=== PATIENT | male | born 1995 | race Caucasian/White ===

== ENCOUNTER 2016-09-24 09:28 | Emergency (ER) | payer OTHER ==
[2016-09-24] MEDS ORDERED: KETOROLAC 30 MG/ML VIAL (J1885) As Ordered ONE (10:24)
[2016-09-24] MEDS ORDERED: ONDANSETRON 4MG/2ML VIAL (J2405) As Ordered ONE (10:24)
[2016-09-24 10:36] LABS: BASO % 0.4 % (0.0-1.0); EOS % 0.7 % (0.0-3.0); LARGE UNSTAINED CELL # 0.2 K/mm3 (0.0-0.4); LYMPH # 1.2 K/mm3 (1.5-6.5); LYMPH % 16.9 % (24.0-44.0); MEAN CORPUSCULAR HEMOGLOBIN 29.9 pg (27.0-33.0); MONO # 0.4 K/mm3 (0.0-0.8); NEUTROPHILS # 5.4 K/mm3 (1.8-7.7); PLATELET COUNT, AUTOMATED 136 k/mm3 (150-450); WHITE BLOOD COUNT 7.3 K/mm3 (4.0-10.0)
[2016-09-24 10:53] LABS: ALBUMIN 4.6 GM/DL (3.2-5.2); ALBUMIN/GLOBULIN RATIO 1.28 (1.00-1.93); ALKALINE PHOSPHATASE 107 U/L (45-117); ALT/SGPT 20 U/L (12-78); AMYLASE 52 U/L (25-115); ANION GAP 8 MEQ/L (8-16); AST/SGOT 16 U/L (15-37); BILIRUBIN,DIRECT 0.3 MG/DL (0.0-0.2); BILIRUBIN,TOTAL 2.6 MG/DL (0.2-1.0); BLOOD UREA NITROGEN 12 MG/DL (7-18); CALCIUM LEVEL 9.2 MG/DL (8.5-10.1); CARBON DIOXIDE LEVEL 30 MEQ/L (21-32); CHLORIDE LEVEL 103 MEQ/L (98-107); CREATININE FOR GFR 1.37 MG/DL (0.70-1.30); GLUCOSE, FASTING 92 MG/DL (70-105); POTASSIUM SERUM 3.5 MEQ/L (3.5-5.1); SODIUM LEVEL 141 MEQ/L (136-145); TOTAL PROTEIN 8.2 GM/DL (6.4-8.2)
--- NOTE | 2016-09-24 11:08 | REP ---
Clinical: Generalized abdominal pain. Findings: Lung bases clear. Visualized heart and pericardium normal. Liver, spleen, pancreas, gallbladder, bilateral adrenal glands and kidneys are normal for noncontrast evaluation. Evaluation of the enteric system is limited by paucity of intraperitoneal fat as well as lack of intraluminal contrast. No obstruction or obvious acute inflammatory process. Visualized portions of the appendix appear normal although incompletely evaluated. Pelvis demonstrates normal bladder and age appropriate prostate/seminal vesicles. 3 mm calcification within the deep left silvia pelvis likely represents phlebolith and less likely ureteral calculus. No ascites. No free air. No obvious adenopathy. Abdominal aorta without aneurysm. Musculoskeletal structures intact. Impression: Limited examination. No obvious acute intra-abdominal or pelvic pathology. 3 mm calcification in the left silvia pelvis likely phleboliths although correlation with physical examination and urinalysis is recommended to better exclude the possibility of distal left ureteral stone. Signed by Marty Brown MD 09/24/2016 11:00 A
--- NOTE | 2016-09-24 12:12 | REP ---
Clinical: Biliary colic. Technique: Real time lua scale and color evaluation using curved array transducer. Findings: The liver and pancreas are normal in contour, size, echogenicity without focal hepatic or pancreatic lesions identified. The gallbladder is normal and without gallstones, wall thickening or pericholecystic fluid. No biliary ductal dilatation is appreciated and the common bile duct measures 2.7 mm diameter. The right kidney is normal in reniform shape with extrarenal pelvis and measures 9.7 x 3.9 x 5.2 cm. No ascites in the visualized right upper quadrant. Impression: Normal RUQ abdominal ultrasound. Signed by Marty Brown MD 09/24/2016 12:04 P
[2016-09-24] MEDS ORDERED: TAMSULOSIN 0.4 MG CAP As Ordered ONE (12:47)
[2016-09-24] MEDS ORDERED: NORCO, ANEXSIA 5/325MG TABLET (HYDROcodone/ACETAMINOPHEN) As Ordered ONE (12:47)
[2016-09-24] MEDS ORDERED: ONDANSETRON 4 MG ORAL DISINTEGRATING TAB (S0181) As Ordered ONE (12:47)
--- NOTE | 2016-09-24 13:00 | EDDOCDS ---
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 Risk factors: the patient reports not having a history of previous torsion. Adult Sepsis Screening: The patient does not have new or worsening altered mentation. Patient's respiratory rate is less than 22. Systolic blood pressure is greater than 100. Patient has a qSOFA score of 0- Negative Sepsis Screen. Suicide/Homicide risk assessment- the patient denies having any suicidal and/or homicidal ideations and does not present with any other emotional, behavioral or mental health complaints. 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 Transition of care: Patient was received from [facility]. 09:45 Acuity: MAGDALENA Level 3 kcs 09:45 Method Of Arrival: Walkin/Carried/Asstd kcs Triage Assessment: 09:50 General: Appears comfortable, well developed, well nourished, well groomed, Behavior is kcs cooperative, flat. Pain: Location: abdomen Pain currently is 5 out of 10 on a pain scale. HIV screening NA for this visit active duty . Neurological: Level of Consciousness is awake, alert. Respiratory: Airway is patent Respiratory effort is even, unlabored, Respiratory pattern is regular, symmetrical. GI: Reports nausea, Denies diarrhea, vomiting. Derm: Skin is intact, is healthy with good turgor, Skin is dry, Skin is normal. Historical: - Allergies: Augmentin (Rash); - Home Meds: 1. promethazine 25 mg oral tab every 6 hours as needed 2. Zantac 150 mg oral cap once daily 3. Sudafed 30 mg oral tab every 4-6 hours as needed 4. Tylenol 325 mg oral tab 2 tabs every 4 hours as needed 5. Zofran (as hydrochloride) 4 mg Oral tab 4 mg every 8 hours as needed - PMHx: GERD; - PSHx: none; - Social history: Smoking status: Patient states was never smoker of tobacco. No barriers to communication noted, The patient speaks fluent Icelandic. - Family history: Not pertinent. - : The pt / caregiver states he / she is not on anticoagulants. Home medication list is obtained from the patient. - Exposure Risk Screening:: None identified. Screenin:10 Screening information is obtained from the patient. Fall risk: No risks identified. mk4 Assistance ADL's: requires no assistance with activities of daily living. Abuse/DV Screen: The patient / caregiver reports he/she is: not in a situation that causes fear, pain or injury. Nutritional screening: No deficits noted. Advance Directives: Currently, there is no health care proxy. There is no active DNR order. There is no living will. There is no Power of Door Opener. Advance directive information has not previously been placed in an [facility] medical record. Further advance directive information is declined. home support is adequate. Assessment: 10:10 General: Appears uncomfortable, Behavior is cooperative. Pain: Location: right lower mk4 quadrant and left lower quadrant. Neurological: Level of Consciousness is awake, alert. Respiratory: Airway is patent Respiratory effort is even, unlabored, Respiratory pattern is regular, Breath sounds are clear bilaterally. GI: Abdomen is flat, non- distended Bowel sounds present X 4 quads. Abd is tender to palpation in right lower quadrant and left lower quadrant. Derm: Skin is intact, is healthy with good turgor, Skin is pink, warm & dry. 12:02 General: Appears in no apparent distress, comfortable, Behavior is appropriate for age, hs1 cooperative, patient resting at this time with no needs. Patient states pain decreased and that he is feeling better. . 12:58 General: Appears in no apparent distress, Behavior is appropriate for age, cooperative. dsf Neurological: Level of Consciousness is awake, alert. Cardiovascular: Capillary refill < 3 seconds. Respiratory: Airway is patent Respiratory effort is even, unlabored, Respiratory pattern is regular, symmetrical. Derm: Skin is pink, warm & dry. Vital Signs: 09:30 BP 145 / 90; Pulse 88; Resp 16; Temp 96.4(T); Pulse Ox 100% on R/A; Weight 63.5 kg (R); lr2 Height 5 ft. 7 in. (170.18 cm) (R); Pain 5/10; 12:49 BP 134 / 70; Pulse 91; Resp 18; Temp 97.3(O); Pulse Ox 99% on R/A; Pain 4/10; jml1 09:30 Body Mass Index 21.93 (63.50 kg, 170.18 cm) lr2 Vitals: 09:30 Log In Time: September 24, 2016 at 09:28. lr2 ED Course: 09:30 Patient visited by Ginger Hernández. lr2 09:30 Patient moved to Waiting lr2 09:31 AMEE Chung is Private Physician. lr2 09:32 Patient moved to Pre RCE lr2 09:37 [facility] Montanez [facility]-C [facility]. ef1 09:37 April Cobb MD is Attending Physician. ef1 09:47 Triage Initiated kcs 09:52 Patient visited by Brigette Montanez PA-C. ef1 09:52 Patient moved to Triage 1 kcs 10:09 Patient moved to I1 / M1 srm 10:09 Patient moved to I7 / 29 srm 10:10 The patient / caregiver is instructed regarding the plan of care and ED course. mk4 10:10 Inserted saline lock: 20 gauge in right antecubital area and blood collected. mk4 10:28 Patient visited by Brigette Montanez PA-C. ef1 10:46 [facility] Payment Agreement was scanned into [employer] and attached to record. mm15 10:59 Patient name changed from Daniel\S\\S\Mcelroy\S\ to Daniel\S\ \S\Mcelroy. EDMS 11:02 Patient visited by Christina Cabrales RN. mk4 11:21 Patient visited by Brigette Montanez PA-C. ef1 11:39 CT ABD & PELVIS: No Contrast Returned. EDMS 11:49 Patient visited by Brigette Montanez PA-C. ef1 12:24 Patient visited by Christina Cabrales RN. mk4 12:25 Gallbladder US Returned. EDMS 12:35 Patient visited by Brigette Montanez PA-C. ef1 12:35 JENNIFER Chung is Referral Physician. ef1 12:35 Stacy Dave MD is Referral Physician. ef1 12:35 Loco Vargas MD is Referral Physician. ef1 12:50 Patient visited by Mark Valerio. jml1 12:58 Discontinued lock intact, bleeding controlled, pressure dressing applied, No dsf redness/swelling at site. No procedures done that require assistance. Administered Medications: 10:31 Drug: NS 0.9% 1000 ml [sodium chloride 0.9 % intravenous solution] Route: IV; Rate: mk4 bolus; Site: right antecubital; 12:59 Follow up: IV Status: Completed infusion; IV Intake: 1000ml dsf 10:31 Drug: Ondansetron 4 mg Route: IVP; Site: right antecubital; mk4 12:01 Follow up: Response: No Adverse Reaction hs1 10:32 Drug: ketorolac 30 mg [ketorolac 30 mg/mL (1 mL) injection solution (1 mL)] Route: IVP; mk4 Site: right antecubital; 12:01 Follow up: Response: Pain is decreased hs1 12:57 Drug: Tamsulosin 0.4 mg [tamsulosin 0.4 mg capsule (1 caps)] Route: PO; dsf 12:57 Drug: Ondansetron ODT 4 mg [ondansetron 4 mg disintegrating tablet (1 tabs)] Route: PO; dsf 12:57 Drug: HYDROcodone-acetaminophen 1 tabs [hydrocodone 5 mg-acetaminophen 325 mg tablet (1 dsf tabs)] Route: PO; Intake: 12:59 IV: 1000.00ml; Total: 1000.00ml. dsf Order Results: Lab Order: Amylase; SPEC'M 09/24/16 10:22 Test: AMYLASE; Value: 52; Range: 25-115; Units: U/L; Status: F Lab Order: Basic Metabolic Profile; SPEC'M 09/24/16 10:22 Test: GLUCOSE, FASTING; Value: 92; Range: 70-105; Units: MG/DL; Status: F Test: BLOOD UREA NITROGEN; Value: 12; Range: 7-18; Units: MG/DL; Status: F Test: CREATININE FOR GFR; Value: 1.37; Range: 0.70-1.30; Abnormal: Above high normal; Units: MG/DL; Status: F Test: SODIUM LEVEL; Value: 141; Range: 136-145; Units: MEQ/L; Status: F Test: POTASSIUM SERUM; Value: 3.5; Range: 3.5-5.1; Units: MEQ/L; Status: F Test: CHLORIDE LEVEL; Value: 103; Range: 98-107; Units: MEQ/L; Status: F Test: CARBON DIOXIDE LEVEL; Value: 30; Range: 21-32; Units: MEQ/L; Status: F Test: ANION GAP; Value: 8; Range: 8-16; Units: MEQ/L; Status: F Test: CALCIUM LEVEL; Value: 9.2; Range: 8.5-10.1; Units: MG/DL; Status: F Lab Order: CBC with Diff; SPEC'M 09/24/16 10:22 Test: WHITE BLOOD COUNT; Value: 7.3; Range: 4.0-10.0; Units: K/mm3; Status: F Test: RED BLOOD COUNT; Value: 6.07; Range: 4.30-6.10; Units: M/mm3; Status: F Test: HEMOGLOBIN; Value: 18.2; Range: 14.0-18.0; Abnormal: Above high normal; Units: g/dl; Status: F Test: HEMATOCRIT; Value: 50.4; Range: 42.0-52.0; Units: %; Status: F Test: MEAN CORPUSCULAR VOLUME; Value: 83.0; Range: 80.0-96.0; Units: fl; Status: F Test: MEAN CORPUSCULAR HEMOGLOBIN; Value: 29.9; Range: 27.0-33.0; Units: pg; Status: F Test: MEAN CORPUSCULAR HGB CONC; Value: 36.0; Range: 32.0-36.5; Units: g/dl; Status: F Test: RED CELL DISTRIBUTION WIDTH; Value: 12.0; Range: 11.5-14.5; Units: %; Status: F Test: PLATELET COUNT, AUTOMATED; Value: 136; Range: 150-450; Abnormal: Below low normal; Units: k/mm3; Status: F Test: NEUTROPHILS %; Value: 74.0; Range: 36.0-66.0; Abnormal: Above high normal; Units: %; Status: F Test: LYMPH %; Value: 16.9; Range: 24.0-44.0; Abnormal: Below low normal; Units: %; Status: F Test: MONO %; Value: 6.0; Range: 0.0-5.0; Abnormal: Above high normal; Units: %; Status: F Test: EOS %; Value: 0.7; Range: 0.0-3.0; Units: %; Status: F Test: BASO %; Value: 0.4; Range: 0.0-1.0; Units: %; Status: F Test: LARGE UNSTAINED CELL %; Value: 2.0; Range: 0.0-4.0; Units: %; Status: F Test: NEUTROPHILS #; Value: 5.4; Range: 1.8-7.7; Units: K/mm3; Status: F Test: LYMPH #; Value: 1.2; Range: 1.5-6.5; Abnormal: Below low normal; Units: K/mm3; Status: F Test: MONO #; Value: 0.4; Range: 0.0-0.8; Units: K/mm3; Status: F Test: EOS #; Value: 0.0; Range: 0.0-0.50; Units: K/mm3; Status: F Test: BASO #; Value: 0.0; Range: 0.0-0.2; Units: K/mm3; Status: F Test: LARGE UNSTAINED CELL #; Value: 0.2; Range: 0.0-0.4; Units: K/mm3; Status: F Lab Order: Lipase; SPEC'M 09/24/16 10:22 Test: LIPASE; Value: 115; Range: 73-393; Units: U/L; Status: F Lab Order: Liver Profile; SPEC'M 09/24/16 10:22 Test: AST/SGOT; Value: 16; Range: 15-37; Units: U/L; Status: F Test: ALT/SGPT; Value: 20; Range: 12-78; Units: U/L; Status: F Test: ALKALINE PHOSPHATASE; Value: 107; Range: 45-117; Units: U/L; Status: F Test: BILIRUBIN,TOTAL; Value: 2.6; Range: 0.2-1.0; Abnormal: Above high normal; Units: MG/DL; Status: F Test: BILIRUBIN,DIRECT; Value: 0.3; Range: 0.0-0.2; Abnormal: Above high normal; Units: MG/DL; Status: F Test: TOTAL PROTEIN; Value: 8.2; Range: 6.4-8.2; Units: GM/DL; Status: F Test: ALBUMIN; Value: 4.6; Range: 3.2-5.2; Units: GM/DL; Status: F Test: ALBUMIN/GLOBULIN RATIO; Value: 1.28; Range: 1.00-1.93; Status: F Lab Order: Urinalysis; SPEC'M 09/24/16 10:22 Test: APPEARANCE, URINE; Value: CLEAR; Range: CLEAR; Status: F Test: COLOR, URINE; Value: YELLOW; Range: YELLOW; Status: F Test: PH,URINE; Value: 6.0; Range: 5.0-9.0; Units: UNITS; Status: F Test: SPECIFIC GRAVITY URINE AUTO; Value: 1.020; Range: 1.002-1.035; Status: F Test: PROTEIN, URINE AUTO; Value: NEGATIVE; Range: NEGATIVE; Units: mg/dL; Status: F Test: GLUCOSE, URINE (UA) AUTO; Value: NEGATIVE; Range: NEGATIVE; Units: mg/dL; Status: F Test: KETONE, URINE AUTO; Value: NEGATIVE; Range: NEGATIVE; Units: mg/dL; Status: F Test: UROBILINOGEN, URINE AUTO; Value: 0.2; Range: 0.0-2.0; Units: mg/dL; Status: F Test: BILIRUBIN, URINE AUTO; Value: NEGATIVE; Range: NEGATIVE; Status: F Test: NITRITE, URINE AUTO; Value: NEGATIVE; Range: NEGATIVE; Status: F Test: LEUKOCYTE ESTERASE, URINE AUTO; Value: NEGATIVE; Range: NEGATIVE; Status: F Test: BLOOD, URINE BLOOD; Value: 1+; Range: NEGATIVE; Abnormal: Above high normal; Status: F Test: WBC, URINE AUTO; Value: 0; Range: 0-3; Units: /HPF; Status: F Test: RBC, URINE AUTO; Value: 4; Range: 0-3; Abnormal: Above high normal; Units: /HPF; Status: F Test: BACTERIA, URINE AUTO; Value: NEGATIVE; Range: NEGATIVE; Status: F Test: SQUAMOUS EPITHELIAL CELL UR AU; Value: 0; Range: 0-6; Units: /HPF; Status: F Test: MUCUS, URINE; Value: SMALL; Range: NEGATIVE; Status: F Test: HYALINE CAST, URINE AUTO; Value: 0; Range: 0-1; Units: /LPF; Status: F Radiology Order: CT ABD & PELVIS: No Contrast Test: CT ABD & PELVIS: No Contrast REASON FOR EXAMINATION: abd pain/black stools/flank pain; Clinical: Generalized abdominal pain.; ; Findings:; Lung bases clear. Visualized heart and pericardium normal.; ; Liver, spleen, pancreas, gallbladder, bilateral adrenal glands and kidneys are; normal for noncontrast evaluation. Evaluation of the enteric system is limited; by paucity of intraperitoneal fat as well as lack of intraluminal contrast. No; obstruction or obvious acute inflammatory process. Visualized portions of the; appendix appear normal although incompletely evaluated. Pelvis demonstrates; normal bladder and age appropriate prostate/seminal vesicles. 3 mm calcification; within the deep left silvia pelvis likely represents phlebolith and less likely; ureteral calculus. No ascites. No free air. No obvious adenopathy. Abdominal; aorta without aneurysm. Musculoskeletal structures intact.; ; Impression:; Limited examination.; No obvious acute intra-abdominal or pelvic pathology.; 3 mm calcification in the left silvia pelvis likely phleboliths although; correlation with physical examination and urinalysis is recommended to better; exclude the possibility of distal left ureteral stone.; ; ; Signed by; Marty Brown MD 09/24/2016 11:00 A; Radiology Order: Gallbladder US Test: Gallbladder US REASON FOR EXAMINATION: Biliary Colic; Clinical: Biliary colic.; ; Technique: Real time lua scale and color evaluation using curved array; transducer.; ; Findings:; The liver and pancreas are normal in contour, size, echogenicity without focal; hepatic or pancreatic lesions identified. The gallbladder is normal and without; gallstones, wall thickening or pericholecystic fluid. No biliary ductal; dilatation is appreciated and the common bile duct measures 2.7 mm diameter. The; right kidney is normal in reniform shape with extrarenal pelvis and measures 9.7; x 3.9 x 5.2 cm. No ascites in the visualized right upper quadrant.; ; Impression:; Normal RUQ abdominal ultrasound.; ; ; Signed by; Marty Brown MD 09/24/2016 12:04 P; Outcome: 12:35 Discharge ordered by Provider. ef1 12:58 Discharge Assessment: Patient awake, alert and oriented x 3. No cognitive and/or dsf functional deficits noted. Patient verbalized understanding of disposition instructions. patient administered narcotics - yes. Pt provided with safe discharge. The following High Risk Discharge criteria are identified: None. Discharged to home ambulatory. Condition: stable. Discharge instructions given to patient, Instructed on discharge instructions, follow up and referral plans. medication usage, no driving heavy equipment, Demonstrated understanding of instructions, medications, Pt was receptive of discharge instructions/ teaching. Prescriptions given X 3. CT Study completed. Ultrasound Study completed. Property sent home with patient. 12:59 Patient left the ED. dsf Signatures: Dispatcher [employer] EDSandra Dhaliwal, RN RN Crista Dolan RN RN Brigette Bailey, PA-C PA-C ef1 Francia Lobato RN RN hs1 Lanny Lopez,RN RN dsf Mark Valerio jml1 Rolf Varma mm15 Christina Cabrales RN RN mk4 Ginger Hernández lr2 MTDD
--- NOTE | 2016-09-24 13:00 | EDDOCDS ---
Physician Documentation [facility] Name: Daniel Mcelroy Age: 20 yrs Sex: Male : 1995 Arrival Date: 09/24/2016 Time: 09:28 Bed I7 Private MD: [facility]ldon [facility] Disposition: 09/24/16 12:35 Discharged to Home/Self Care. Impression: Calculus of kidney and ureter - Hematuria and Distal left ureteral stone on CT, Melena - None today, Nausea, Generalized abdominal pain. - Condition is Stable. - Discharge Instructions: Nausea, Adult, Kidney Stones, [id number], Gastrointestinal Bleeding, [id number]. - Prescriptions for Flomax 0.4 mg Oral Capsule, Sust. Release 24 hr - take 1 capsule by ORAL route once daily 1/2 hour following the same meal each day; 30 capsule. ZOFRAN ODT 4 mg - dissolve 1 tablet by ORAL route 4 times per day As needed do not chew, do not swallow whole; 10 tablet. Carafate 1 gram Oral Tablet - take 1 tablet by ORAL route 4 times per day take on an empty stomach, beginning on waking and last dose at bedtime; 100 tablet. Riviera 5- 325 mg Oral Tablet - take 1 tablet by ORAL route every 6 hours As needed MDD: 4 tabs; 20 tablet. - Medication Reconciliation, Local Pharmacy Hours form. - Follow up: [facility] Sheldon; When: 1 - 2 days; Reason: Recheck today's complaints, Continuance of care. Follow up: Emergency Department; Reason: Worsening of conditions. Follow up: Stacy Dave; When: Call to arrange an appointment; Reason: Further diagnostic work-up, Recheck today's complaints, Continuance of care. Follow up: Dr. Loco Vargas; When: Call to arrange an appointment; Reason: Further diagnostic work-up, Recheck today's complaints, Continuance of care. - Problem is new. - Symptoms have improved. Historical: - Allergies: Augmentin (Rash); - Home Meds: 1. promethazine 25 mg oral tab every 6 hours as needed 2. Zantac 150 mg oral cap once daily 3. Sudafed 30 mg oral tab every 4-6 hours as needed 4. Tylenol 325 mg oral tab 2 tabs every 4 hours as needed 5. Zofran (as hydrochloride) 4 mg Oral tab 4 mg every 8 hours as needed - PMHx: GERD; - PSHx: none; - Social history: Smoking status: Patient states was never smoker of tobacco. No barriers to communication noted, The patient speaks fluent Ghanaian. - Family history: Not pertinent. - : The pt / caregiver states he / she is not on anticoagulants. Home medication list is obtained from the patient. - Exposure Risk Screening:: None identified. Vital Signs: 09/24 09:30 BP 145 / 90; Pulse 88; Resp 16; Temp 96.4(T); Pulse Ox 100% on R/A; Weight 63.5 kg / lr2 139.99 lbs (R); Height 5 ft. 7 in. (170.18 cm) (R); Pain 5/10; 12:49 BP 134 / 70; Pulse 91; Resp 18; Temp 97.3(O); Pulse Ox 99% on R/A; Pain 4/10; jml1 09:30 Body Mass Index 21.93 (63.50 kg, 170.18 cm) lr2 MDM: 10:07 NS 0.9% 1000 ml IV at bolus once ordered. ef1 10:07 Ondansetron 4 mg IVP once ordered. ef1 10:07 ketorolac 30 mg IVP once ordered. ef1 10:07 IV Saline Lock ordered. ef1 10:07 Undress patient appropriately for examination ordered. ef1 10:08 CT ABD & PELVIS: No Contrast Ordered. EDMS 10:09 Amylase Ordered. EDMS 10:09 Basic Metabolic Profile Ordered. EDMS 10:09 CBC with Diff Ordered. EDMS 10:09 Lipase Ordered. EDMS 10:09 Liver Profile Ordered. EDMS 10:09 Urinalysis Ordered. EDMS 10:09 Urine Culture Ordered. EDMS 10:09 NOTHING BY MOUTH+DIET ordered. EDMS 10:29 Financial registration complete. mm15 10:46 [facility] Payment Agreement was scanned into [employer] and attached to record. mm15 11:17 Basic Metabolic Profile Reviewed. ef1 11:17 CBC with Diff Reviewed. ef1 11:17 Liver Profile Reviewed. ef1 11:17 Urinalysis Reviewed. ef1 11:17 Amylase Reviewed. ef1 11:17 Lipase Reviewed. ef1 11:20 Gallbladder US Ordered. EDMS 12:34 Tamsulosin Extended Release 24 hour Capsule 0.4 mg PO once ordered. ef1 12:41 Ondansetron ODT Oral Disintegrating Tablet 4 mg PO once ordered. ef1 12:41 HYDROcodone-acetaminophen 5 mg-325 mg 1 tabs PO once ordered. ef1 Administered Medications: 10:31 Drug: NS 0.9% 1000 ml [sodium chloride 0.9 % intravenous solution] Route: IV; Rate: mk4 bolus; Site: right antecubital; 12:59 Follow up: IV Status: Completed infusion; IV Intake: 1000ml dsf 10:31 Drug: Ondansetron 4 mg Route: IVP; Site: right antecubital; mk4 12:01 Follow up: Response: No Adverse Reaction hs1 10:32 Drug: ketorolac 30 mg [ketorolac 30 mg/mL (1 mL) injection solution (1 mL)] Route: IVP; mk4 Site: right antecubital; 12:01 Follow up: Response: Pain is decreased hs1 12:57 Drug: Tamsulosin 0.4 mg [tamsulosin 0.4 mg capsule (1 caps)] Route: PO; dsf 12:57 Drug: Ondansetron ODT 4 mg [ondansetron 4 mg disintegrating tablet (1 tabs)] Route: PO; dsf 12:57 Drug: HYDROcodone-acetaminophen 1 tabs [hydrocodone 5 mg-acetaminophen 325 mg tablet (1 dsf tabs)] Route: PO; Signatures: Dispatcher [employer] Sandra Velazquez RN RN kcs Feola, Erica, PA-C PA-C ef1 Lanny Lopez RN RN dsf Rolf Varma mm15 Christina Cabrales RN RN mk4 Francia Lobato RN hs1 The chart was reviewed and I authenticate all verbal orders and agree with the evaluation and treatment provided.Attachments: 10:46 [facility] Payment Agreement mm15 MTDD
--- NOTE | 2016-09-26 14:00 | EDDOCDS ---
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 Risk factors: the patient reports not having a history of previous torsion. Adult Sepsis Screening: The patient does not have new or worsening altered mentation. Patient's respiratory rate is less than 22. Systolic blood pressure is greater than 100. Patient has a qSOFA score of 0- Negative Sepsis Screen. Suicide/Homicide risk assessment- the patient denies having any suicidal and/or homicidal ideations and does not present with any other emotional, behavioral or mental health complaints. 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 Transition of care: Patient was received from [facility]. 09:45 Acuity: MAGDALENA Level 3 kcs 09:45 Method Of Arrival: Walkin/Carried/Asstd kcs Triage Assessment: 09:50 General: Appears comfortable, well developed, well nourished, well groomed, Behavior is kcs cooperative, flat. Pain: Location: abdomen Pain currently is 5 out of 10 on a pain scale. HIV screening NA for this visit active duty . Neurological: Level of Consciousness is awake, alert. Respiratory: Airway is patent Respiratory effort is even, unlabored, Respiratory pattern is regular, symmetrical. GI: Reports nausea, Denies diarrhea, vomiting. Derm: Skin is intact, is healthy with good turgor, Skin is dry, Skin is normal. Historical: - Allergies: Augmentin (Rash); - Home Meds: 1. promethazine 25 mg oral tab every 6 hours as needed 2. Zantac 150 mg oral cap once daily 3. Sudafed 30 mg oral tab every 4-6 hours as needed 4. Tylenol 325 mg oral tab 2 tabs every 4 hours as needed 5. Zofran (as hydrochloride) 4 mg Oral tab 4 mg every 8 hours as needed - PMHx: GERD; - PSHx: none; - Social history: Smoking status: Patient states was never smoker of tobacco. No barriers to communication noted, The patient speaks fluent German. - Family history: Not pertinent. - : The pt / caregiver states he / she is not on anticoagulants. Home medication list is obtained from the patient. - Exposure Risk Screening:: None identified. Screenin:10 Screening information is obtained from the patient. Fall risk: No risks identified. mk4 Assistance ADL's: requires no assistance with activities of daily living. Abuse/DV Screen: The patient / caregiver reports he/she is: not in a situation that causes fear, pain or injury. Nutritional screening: No deficits noted. Advance Directives: Currently, there is no health care proxy. There is no active DNR order. There is no living will. There is no Power of Career Education Teacher. Advance directive information has not previously been placed in an [facility] medical record. Further advance directive information is declined. home support is adequate. Assessment: 10:10 General: Appears uncomfortable, Behavior is cooperative. Pain: Location: right lower mk4 quadrant and left lower quadrant. Neurological: Level of Consciousness is awake, alert. Respiratory: Airway is patent Respiratory effort is even, unlabored, Respiratory pattern is regular, Breath sounds are clear bilaterally. GI: Abdomen is flat, non- distended Bowel sounds present X 4 quads. Abd is tender to palpation in right lower quadrant and left lower quadrant. Derm: Skin is intact, is healthy with good turgor, Skin is pink, warm & dry. 12:02 General: Appears in no apparent distress, comfortable, Behavior is appropriate for age, hs1 cooperative, patient resting at this time with no needs. Patient states pain decreased and that he is feeling better. . 12:58 General: Appears in no apparent distress, Behavior is appropriate for age, cooperative. dsf Neurological: Level of Consciousness is awake, alert. Cardiovascular: Capillary refill < 3 seconds. Respiratory: Airway is patent Respiratory effort is even, unlabored, Respiratory pattern is regular, symmetrical. Derm: Skin is pink, warm & dry. Vital Signs: 09:30 BP 145 / 90; Pulse 88; Resp 16; Temp 96.4(T); Pulse Ox 100% on R/A; Weight 63.5 kg (R); lr2 Height 5 ft. 7 in. (170.18 cm) (R); Pain 5/10; 12:49 BP 134 / 70; Pulse 91; Resp 18; Temp 97.3(O); Pulse Ox 99% on R/A; Pain 4/10; jml1 09:30 Body Mass Index 21.93 (63.50 kg, 170.18 cm) lr2 Vitals: 09:30 Log In Time: September 24, 2016 at 09:28. lr2 ED Course: 09:30 Patient visited by Ginger Hernández. lr2 09:30 Patient moved to Waiting lr2 09:31 AMEE Chung is Private Physician. lr2 09:32 Patient moved to Pre RCE lr2 09:37 Brigette Montanez PA-C is [facility]. ef1 09:37 April Cobb MD is Attending Physician. ef1 09:47 Triage Initiated kcs 09:52 Patient visited by Brigette Montanez PA-C. ef1 09:52 Patient moved to Triage 1 kcs 10:09 Patient moved to I1 / M1 srm 10:09 Patient moved to I7 / 29 srm 10:10 The patient / caregiver is instructed regarding the plan of care and ED course. mk4 10:10 Inserted saline lock: 20 gauge in right antecubital area and blood collected. mk4 10:28 Patient visited by Brigette Montanez PA-C. ef1 10:46 [facility] Payment Agreement was scanned into [employer] and attached to record. mm15 10:59 Patient name changed from Daniel\S\\S\Mcelroy\S\ to Daniel\S\ \S\Mcelroy. EDMS 11:02 Patient visited by Christina Cabrales RN. mk4 11:21 Patient visited by Brigette Montanez PA-C. ef1 11:39 CT ABD & PELVIS: No Contrast Returned. EDMS 11:49 Patient visited by Brigette Montanez PA-C. ef1 12:24 Patient visited by Christina Cabrales RN. mk4 12:25 Gallbladder US Returned. EDMS 12:35 Patient visited by Brigette Montanez PA-C. ef1 12:35 JENNIFER Chung is Referral Physician. ef1 12:35 Stacy Dave MD is Referral Physician. ef1 12:35 Loco Vargas MD is Referral Physician. ef1 12:50 Patient visited by Mark Valerio. jml1 12:58 Discontinued lock intact, bleeding controlled, pressure dressing applied, No dsf redness/swelling at site. No procedures done that require assistance. 09/25 11:20 T-Sheet-- Draft Copy was scanned into [employer] and attached to record. gb 11:21 Radiology Report was scanned into [employer] and attached to record. gb Administered Medications: 09/24 10:31 Drug: NS 0.9% 1000 ml [sodium chloride 0.9 % intravenous solution] Route: IV; Rate: mk4 bolus; Site: right antecubital; 12:59 Follow up: IV Status: Completed infusion; IV Intake: 1000ml dsf 10:31 Drug: Ondansetron 4 mg Route: IVP; Site: right antecubital; mk4 12:01 Follow up: Response: No Adverse Reaction hs1 10:32 Drug: ketorolac 30 mg [ketorolac 30 mg/mL (1 mL) injection solution (1 mL)] Route: IVP; mk4 Site: right antecubital; 12:01 Follow up: Response: Pain is decreased hs1 12:57 Drug: Tamsulosin 0.4 mg [tamsulosin 0.4 mg capsule (1 caps)] Route: PO; dsf 12:57 Drug: Ondansetron ODT 4 mg [ondansetron 4 mg disintegrating tablet (1 tabs)] Route: PO; dsf 12:57 Drug: HYDROcodone-acetaminophen 1 tabs [hydrocodone 5 mg-acetaminophen 325 mg tablet (1 dsf tabs)] Route: PO; Intake: 12:59 IV: 1000.00ml; Total: 1000.00ml. dsf Order Results: Lab Order: Amylase; SPEC'M 09/24/16 10:22 Test: AMYLASE; Value: 52; Range: 25-115; Units: U/L; Status: F Lab Order: Basic Metabolic Profile; SPEC'M 09/24/16 10:22 Test: GLUCOSE, FASTING; Value: 92; Range: 70-105; Units: MG/DL; Status: F Test: BLOOD UREA NITROGEN; Value: 12; Range: 7-18; Units: MG/DL; Status: F Test: CREATININE FOR GFR; Value: 1.37; Range: 0.70-1.30; Abnormal: Above high normal; Units: MG/DL; Status: F Test: SODIUM LEVEL; Value: 141; Range: 136-145; Units: MEQ/L; Status: F Test: POTASSIUM SERUM; Value: 3.5; Range: 3.5-5.1; Units: MEQ/L; Status: F Test: CHLORIDE LEVEL; Value: 103; Range: 98-107; Units: MEQ/L; Status: F Test: CARBON DIOXIDE LEVEL; Value: 30; Range: 21-32; Units: MEQ/L; Status: F Test: ANION GAP; Value: 8; Range: 8-16; Units: MEQ/L; Status: F Test: CALCIUM LEVEL; Value: 9.2; Range: 8.5-10.1; Units: MG/DL; Status: F Lab Order: CBC with Diff; SPEC'M 09/24/16 10:22 Test: WHITE BLOOD COUNT; Value: 7.3; Range: 4.0-10.0; Units: K/mm3; Status: F Test: RED BLOOD COUNT; Value: 6.07; Range: 4.30-6.10; Units: M/mm3; Status: F Test: HEMOGLOBIN; Value: 18.2; Range: 14.0-18.0; Abnormal: Above high normal; Units: g/dl; Status: F Test: HEMATOCRIT; Value: 50.4; Range: 42.0-52.0; Units: %; Status: F Test: MEAN CORPUSCULAR VOLUME; Value: 83.0; Range: 80.0-96.0; Units: fl; Status: F Test: MEAN CORPUSCULAR HEMOGLOBIN; Value: 29.9; Range: 27.0-33.0; Units: pg; Status: F Test: MEAN CORPUSCULAR HGB CONC; Value: 36.0; Range: 32.0-36.5; Units: g/dl; Status: F Test: RED CELL DISTRIBUTION WIDTH; Value: 12.0; Range: 11.5-14.5; Units: %; Status: F Test: PLATELET COUNT, AUTOMATED; Value: 136; Range: 150-450; Abnormal: Below low normal; Units: k/mm3; Status: F Test: NEUTROPHILS %; Value: 74.0; Range: 36.0-66.0; Abnormal: Above high normal; Units: %; Status: F Test: LYMPH %; Value: 16.9; Range: 24.0-44.0; Abnormal: Below low normal; Units: %; Status: F Test: MONO %; Value: 6.0; Range: 0.0-5.0; Abnormal: Above high normal; Units: %; Status: F Test: EOS %; Value: 0.7; Range: 0.0-3.0; Units: %; Status: F Test: BASO %; Value: 0.4; Range: 0.0-1.0; Units: %; Status: F Test: LARGE UNSTAINED CELL %; Value: 2.0; Range: 0.0-4.0; Units: %; Status: F Test: NEUTROPHILS #; Value: 5.4; Range: 1.8-7.7; Units: K/mm3; Status: F Test: LYMPH #; Value: 1.2; Range: 1.5-6.5; Abnormal: Below low normal; Units: K/mm3; Status: F Test: MONO #; Value: 0.4; Range: 0.0-0.8; Units: K/mm3; Status: F Test: EOS #; Value: 0.0; Range: 0.0-0.50; Units: K/mm3; Status: F Test: BASO #; Value: 0.0; Range: 0.0-0.2; Units: K/mm3; Status: F Test: LARGE UNSTAINED CELL #; Value: 0.2; Range: 0.0-0.4; Units: K/mm3; Status: F Lab Order: Lipase; SPEC'M 09/24/16 10:22 Test: LIPASE; Value: 115; Range: 73-393; Units: U/L; Status: F Lab Order: Liver Profile; SPEC'M 09/24/16 10:22 Test: AST/SGOT; Value: 16; Range: 15-37; Units: U/L; Status: F Test: ALT/SGPT; Value: 20; Range: 12-78; Units: U/L; Status: F Test: ALKALINE PHOSPHATASE; Value: 107; Range: 45-117; Units: U/L; Status: F Test: BILIRUBIN,TOTAL; Value: 2.6; Range: 0.2-1.0; Abnormal: Above high normal; Units: MG/DL; Status: F Test: BILIRUBIN,DIRECT; Value: 0.3; Range: 0.0-0.2; Abnormal: Above high normal; Units: MG/DL; Status: F Test: TOTAL PROTEIN; Value: 8.2; Range: 6.4-8.2; Units: GM/DL; Status: F Test: ALBUMIN; Value: 4.6; Range: 3.2-5.2; Units: GM/DL; Status: F Test: ALBUMIN/GLOBULIN RATIO; Value: 1.28; Range: 1.00-1.93; Status: F Lab Order: Urinalysis; SPEC'M 09/24/16 10:22 Test: APPEARANCE, URINE; Value: CLEAR; Range: CLEAR; Status: F Test: COLOR, URINE; Value: YELLOW; Range: YELLOW; Status: F Test: PH,URINE; Value: 6.0; Range: 5.0-9.0; Units: UNITS; Status: F Test: SPECIFIC GRAVITY URINE AUTO; Value: 1.020; Range: 1.002-1.035; Status: F Test: PROTEIN, URINE AUTO; Value: NEGATIVE; Range: NEGATIVE; Units: mg/dL; Status: F Test: GLUCOSE, URINE (UA) AUTO; Value: NEGATIVE; Range: NEGATIVE; Units: mg/dL; Status: F Test: KETONE, URINE AUTO; Value: NEGATIVE; Range: NEGATIVE; Units: mg/dL; Status: F Test: UROBILINOGEN, URINE AUTO; Value: 0.2; Range: 0.0-2.0; Units: mg/dL; Status: F Test: BILIRUBIN, URINE AUTO; Value: NEGATIVE; Range: NEGATIVE; Status: F Test: NITRITE, URINE AUTO; Value: NEGATIVE; Range: NEGATIVE; Status: F Test: LEUKOCYTE ESTERASE, URINE AUTO; Value: NEGATIVE; Range: NEGATIVE; Status: F Test: BLOOD, URINE BLOOD; Value: 1+; Range: NEGATIVE; Abnormal: Above high normal; Status: F Test: WBC, URINE AUTO; Value: 0; Range: 0-3; Units: /HPF; Status: F Test: RBC, URINE AUTO; Value: 4; Range: 0-3; Abnormal: Above high normal; Units: /HPF; Status: F Test: BACTERIA, URINE AUTO; Value: NEGATIVE; Range: NEGATIVE; Status: F Test: SQUAMOUS EPITHELIAL CELL UR AU; Value: 0; Range: 0-6; Units: /HPF; Status: F Test: MUCUS, URINE; Value: SMALL; Range: NEGATIVE; Status: F Test: HYALINE CAST, URINE AUTO; Value: 0; Range: 0-1; Units: /LPF; Status: F Lab Order: Urine Culture; SPEC'M 09/24/16 10:22 Test: URINE CULTURE; Value: <EXTERNAL COMMENT eCWMed> FULL REPORT IN LAB NOTES (eCW and Medent).; Status: F Test: URINE CULTURE; Value: URINE CULTURE RESULT NO GROWTH CLINICAL SIGNIFICANCE 1 ORGANISM; Status: F Radiology Order: CT ABD & PELVIS: No Contrast Test: CT ABD & PELVIS: No Contrast REASON FOR EXAMINATION: abd pain/black stools/flank pain; Clinical: Generalized abdominal pain.; ; Findings:; Lung bases clear. Visualized heart and pericardium normal.; ; Liver, spleen, pancreas, gallbladder, bilateral adrenal glands and kidneys are; normal for noncontrast evaluation. Evaluation of the enteric system is limited; by paucity of intraperitoneal fat as well as lack of intraluminal contrast. No; obstruction or obvious acute inflammatory process. Visualized portions of the; appendix appear normal although incompletely evaluated. Pelvis demonstrates; normal bladder and age appropriate prostate/seminal vesicles. 3 mm calcification; within the deep left silvia pelvis likely represents phlebolith and less likely; ureteral calculus. No ascites. No free air. No obvious adenopathy. Abdominal; aorta without aneurysm. Musculoskeletal structures intact.; ; Impression:; Limited examination.; No obvious acute intra-abdominal or pelvic pathology.; 3 mm calcification in the left silvia pelvis likely phleboliths although; correlation with physical examination and urinalysis is recommended to better; exclude the possibility of distal left ureteral stone.; ; ; Signed by; Marty Brown MD 09/24/2016 11:00 A; Radiology Order: Gallbladder US Test: Gallbladder US REASON FOR EXAMINATION: Biliary Colic; Clinical: Biliary colic.; ; Technique: Real time lua scale and color evaluation using curved array; transducer.; ; Findings:; The liver and pancreas are normal in contour, size, echogenicity without focal; hepatic or pancreatic lesions identified. The gallbladder is normal and without; gallstones, wall thickening or pericholecystic fluid. No biliary ductal; dilatation is appreciated and the common bile duct measures 2.7 mm diameter. The; right kidney is normal in reniform shape with extrarenal pelvis and measures 9.7; x 3.9 x 5.2 cm. No ascites in the visualized right upper quadrant.; ; Impression:; Normal RUQ abdominal ultrasound.; ; ; Signed by; Marty Brown MD 09/24/2016 12:04 P; Outcome: 12:35 Discharge ordered by Provider. ef1 12:58 Discharge Assessment: Patient awake, alert and oriented x 3. No cognitive and/or dsf functional deficits noted. Patient verbalized understanding of disposition instructions. patient administered narcotics - yes. Pt provided with safe discharge. The following High Risk Discharge criteria are identified: None. Discharged to home ambulatory. Condition: stable. Discharge instructions given to patient, Instructed on discharge instructions, follow up and referral plans. medication usage, no driving heavy equipment, Demonstrated understanding of instructions, medications, Pt was receptive of discharge instructions/ teaching. Prescriptions given X 3. CT Study completed. Ultrasound Study completed. Property sent home with patient. 12:59 Patient left the ED. dsf Signatures: Dispatcher [employer] EDSandra Dhaliwal, RN [facility] Crista Calderon RN RN [facility] Ravin, Jessika, Reg Reg gb Brigette Montanez, PA-C PA-C ef1 Francia Lobato RN RN hs1 Lanny Lopez RN RN dsf Mark Valerio jml1 Rofl Varma mm15 Christina Cabrales RN RN [id number] Ginger Hernández lr2 Chart Complete MTDD
--- NOTE | 2016-09-26 14:00 | EDDOCDS ---
Physician Documentation [facility] Name: Daniel Mcelroy Age: 20 yrs Sex: Male : 1995 Arrival Date: 09/24/2016 Time: 09:28 Bed I7 Private MD: [facility] Disposition: 09/24/16 12:35 Discharged to Home/Self Care. Impression: Calculus of kidney and ureter - Hematuria and Distal left ureteral stone on CT, Melena - None today, Nausea, Generalized abdominal pain. - Condition is Stable. - Discharge Instructions: Nausea, Adult, Kidney Stones, [id number], Gastrointestinal Bleeding, [id number]. - Prescriptions for Flomax 0.4 mg Oral Capsule, Sust. Release 24 hr - take 1 capsule by ORAL route once daily 1/2 hour following the same meal each day; 30 capsule. ZOFRAN ODT 4 mg - dissolve 1 tablet by ORAL route 4 times per day As needed do not chew, do not swallow whole; 10 tablet. Carafate 1 gram Oral Tablet - take 1 tablet by ORAL route 4 times per day take on an empty stomach, beginning on waking and last dose at bedtime; 100 tablet. [place] 5- 325 mg Oral Tablet - take 1 tablet by ORAL route every 6 hours As needed MDD: 4 tabs; 20 tablet. - Medication Reconciliation, Local Pharmacy Hours form. - Follow up: [facility]; When: 1 - 2 days; Reason: Recheck today's complaints, Continuance of care. Follow up: Emergency Department; Reason: Worsening of conditions. Follow up: Stacy Dave; When: Call to arrange an appointment; Reason: Further diagnostic work-up, Recheck today's complaints, Continuance of care. Follow up: Dr. Loco Vargas; When: Call to arrange an appointment; Reason: Further diagnostic work-up, Recheck today's complaints, Continuance of care. - Problem is new. - Symptoms have improved. Historical: - Allergies: Augmentin (Rash); - Home Meds: 1. promethazine 25 mg oral tab every 6 hours as needed 2. Zantac 150 mg oral cap once daily 3. Sudafed 30 mg oral tab every 4-6 hours as needed 4. Tylenol 325 mg oral tab 2 tabs every 4 hours as needed 5. Zofran (as hydrochloride) 4 mg Oral tab 4 mg every 8 hours as needed - PMHx: GERD; - PSHx: none; - Social history: Smoking status: Patient states was never smoker of tobacco. No barriers to communication noted, The patient speaks fluent Surinamese. - Family history: Not pertinent. - : The pt / caregiver states he / she is not on anticoagulants. Home medication list is obtained from the patient. - Exposure Risk Screening:: None identified. Vital Signs: 09/24 09:30 BP 145 / 90; Pulse 88; Resp 16; Temp 96.4(T); Pulse Ox 100% on R/A; Weight 63.5 kg / lr2 139.99 lbs (R); Height 5 ft. 7 in. (170.18 cm) (R); Pain 5/10; 12:49 BP 134 / 70; Pulse 91; Resp 18; Temp 97.3(O); Pulse Ox 99% on R/A; Pain 4/10; jml1 09:30 Body Mass Index 21.93 (63.50 kg, 170.18 cm) lr2 MDM: 10:07 NS 0.9% 1000 ml IV at bolus once ordered. ef1 10:07 Ondansetron 4 mg IVP once ordered. ef1 10:07 ketorolac 30 mg IVP once ordered. ef1 10:07 IV Saline Lock ordered. ef1 10:07 Undress patient appropriately for examination ordered. ef1 10:08 CT ABD & PELVIS: No Contrast Ordered. EDMS 10:09 Amylase Ordered. EDMS 10:09 Basic Metabolic Profile Ordered. EDMS 10:09 CBC with Diff Ordered. EDMS 10:09 Lipase Ordered. EDMS 10:09 Liver Profile Ordered. EDMS 10:09 Urinalysis Ordered. EDMS 10:09 Urine Culture Ordered. EDMS 10:09 NOTHING BY MOUTH+DIET ordered. EDMS 10:29 Financial registration complete. mm15 10:46 [facility] Payment Agreement was scanned into [employer] ([employer]) and attached to record. mm15 11:17 Basic Metabolic Profile Reviewed. ef1 11:17 CBC with Diff Reviewed. ef1 11:17 Liver Profile Reviewed. ef1 11:17 Urinalysis Reviewed. ef1 11:17 Amylase Reviewed. ef1 11:17 Lipase Reviewed. ef1 11:20 Gallbladder US Ordered. EDMS 12:34 Tamsulosin Extended Release 24 hour Capsule 0.4 mg PO once ordered. ef1 12:41 Ondansetron ODT Oral Disintegrating Tablet 4 mg PO once ordered. ef1 12:41 HYDROcodone-acetaminophen 5 mg-325 mg 1 tabs PO once ordered. ef1 09/25 11:20 T-Sheet-- Draft Copy was scanned into [employer] ([employer]) and attached to record. gb 11:21 Radiology Report was scanned into [employer] ([employer]) and attached to record. gb Administered Medications: 09/24 10:31 Drug: NS 0.9% 1000 ml [sodium chloride 0.9 % intravenous solution] Route: IV; Rate: mk4 bolus; Site: right antecubital; 12:59 Follow up: IV Status: Completed infusion; IV Intake: 1000ml dsf 10:31 Drug: Ondansetron 4 mg Route: IVP; Site: right antecubital; mk4 12:01 Follow up: Response: No Adverse Reaction hs1 10:32 Drug: ketorolac 30 mg [ketorolac 30 mg/mL (1 mL) injection solution (1 mL)] Route: IVP; mk4 Site: right antecubital; 12:01 Follow up: Response: Pain is decreased hs1 12:57 Drug: Tamsulosin 0.4 mg [tamsulosin 0.4 mg capsule (1 caps)] Route: PO; dsf 12:57 Drug: Ondansetron ODT 4 mg [ondansetron 4 mg disintegrating tablet (1 tabs)] Route: PO; dsf 12:57 Drug: HYDROcodone-acetaminophen 1 tabs [hydrocodone 5 mg-acetaminophen 325 mg tablet (1 dsf tabs)] Route: PO; Signatures: Dispatcher [employer] Sandra Velazquez RN RN kcs Jessika Alicia, Reg Reg gb Brigette Montanez, PA-C PA-C ef1 Lanny Lopez RN RN dsf Rolf Varma mm15 Christina Cabrales RN RN mk4 Francia Lobato RN hs1 The chart was reviewed and I authenticate all verbal orders and agree with the evaluation and treatment provided.Attachments: 10:46 [facility] Payment Agreement mm15 09/25 11:20 T-Sheet-- Draft Copy Chart Complete MTDD
--- NOTE | 2016-09-26 14:00 | EDDOCDS ---
Physician Documentation [facility] Name: Daniel Mcelroy Age: 20 yrs Sex: Male : 1995 Arrival Date: 09/24/2016 Time: 09:28 Bed I7 Private MD: Sheldon [facility] – [place] Disposition: 09/24/16 12:35 Discharged to Home/Self Care. Impression: Calculus of kidney and ureter - Hematuria and Distal left ureteral stone on CT, Melena - None today, Nausea, Generalized abdominal pain. - Condition is Stable. - Discharge Instructions: Nausea, Adult, Kidney Stones, [id number], Gastrointestinal Bleeding, [id number]. - Prescriptions for Flomax 0.4 mg Oral Capsule, Sust. Release 24 hr - take 1 capsule by ORAL route once daily 1/2 hour following the same meal each day; 30 capsule. ZOFRAN ODT 4 mg - dissolve 1 tablet by ORAL route 4 times per day As needed do not chew, do not swallow whole; 10 tablet. Carafate 1 gram Oral Tablet - take 1 tablet by ORAL route 4 times per day take on an empty stomach, beginning on waking and last dose at bedtime; 100 tablet. Bruce 5- 325 mg Oral Tablet - take 1 tablet by ORAL route every 6 hours As needed MDD: 4 tabs; 20 tablet. - Medication Reconciliation, Local Pharmacy Hours form. - Follow up: [facility] – [place] Sheldon; When: 1 - 2 days; Reason: Recheck today's complaints, Continuance of care. Follow up: Emergency Department; Reason: Worsening of conditions. Follow up: Stacy Dave; When: Call to arrange an appointment; Reason: Further diagnostic work-up, Recheck today's complaints, Continuance of care. Follow up: Dr. Loco Vargas; When: Call to arrange an appointment; Reason: Further diagnostic work-up, Recheck today's complaints, Continuance of care. - Problem is new. - Symptoms have improved. Historical: - Allergies: Augmentin (Rash); - Home Meds: 1. promethazine 25 mg oral tab every 6 hours as needed 2. Zantac 150 mg oral cap once daily 3. Sudafed 30 mg oral tab every 4-6 hours as needed 4. Tylenol 325 mg oral tab 2 tabs every 4 hours as needed 5. Zofran (as hydrochloride) 4 mg Oral tab 4 mg every 8 hours as needed - PMHx: GERD; - PSHx: none; - Social history: Smoking status: Patient states was never smoker of tobacco. No barriers to communication noted, The patient speaks fluent [place]. - Family history: Not pertinent. - : The pt / caregiver states he / she is not on anticoagulants. Home medication list is obtained from the patient. - Exposure Risk Screening:: None identified. Vital Signs: 09/24 09:30 BP 145 / 90; Pulse 88; Resp 16; Temp 96.4(T); Pulse Ox 100% on R/A; Weight 63.5 kg / lr2 139.99 lbs (R); Height 5 ft. 7 in. (170.18 cm) (R); Pain 5/10; 12:49 BP 134 / 70; Pulse 91; Resp 18; Temp 97.3(O); Pulse Ox 99% on R/A; Pain 4/10; jml1 09:30 Body Mass Index 21.93 (63.50 kg, 170.18 cm) lr2 MDM: 10:07 NS 0.9% 1000 ml IV at bolus once ordered. ef1 10:07 Ondansetron 4 mg IVP once ordered. ef1 10:07 ketorolac 30 mg IVP once ordered. ef1 10:07 IV Saline Lock ordered. ef1 10:07 Undress patient appropriately for examination ordered. ef1 10:08 CT ABD & PELVIS: No Contrast Ordered. EDMS 10:09 Amylase Ordered. EDMS 10:09 Basic Metabolic Profile Ordered. EDMS 10:09 CBC with Diff Ordered. EDMS 10:09 Lipase Ordered. EDMS 10:09 Liver Profile Ordered. EDMS 10:09 Urinalysis Ordered. EDMS 10:09 Urine Culture Ordered. EDMS 10:09 NOTHING BY MOUTH+DIET ordered. EDMS 10:29 Financial registration complete. mm15 10:46 [facility] [place] Payment Agreement was scanned into [employer] and attached to record. mm15 11:17 Basic Metabolic Profile Reviewed. ef1 11:17 CBC with Diff Reviewed. ef1 11:17 Liver Profile Reviewed. ef1 11:17 Urinalysis Reviewed. ef1 11:17 Amylase Reviewed. ef1 11:17 Lipase Reviewed. ef1 11:20 Gallbladder US Ordered. EDMS 12:34 Tamsulosin Extended Release 24 hour Capsule 0.4 mg PO once ordered. ef1 12:41 Ondansetron ODT Oral Disintegrating Tablet 4 mg PO once ordered. ef1 12:41 HYDROcodone-acetaminophen 5 mg-325 mg 1 tabs PO once ordered. ef1 09/25 11:20 T-Sheet-- Draft Copy was scanned into [employer] and attached to record. gb 11:21 Radiology Report was scanned into [employer] and attached to record. gb Administered Medications: 09/24 10:31 Drug: NS 0.9% 1000 ml [sodium chloride 0.9 % intravenous solution] Route: IV; Rate: mk4 bolus; Site: right antecubital; 12:59 Follow up: IV Status: Completed infusion; IV Intake: 1000ml dsf 10:31 Drug: Ondansetron 4 mg Route: IVP; Site: right antecubital; mk4 12:01 Follow up: Response: No Adverse Reaction hs1 10:32 Drug: ketorolac 30 mg [ketorolac 30 mg/mL (1 mL) injection solution (1 mL)] Route: IVP; mk4 Site: right antecubital; 12:01 Follow up: Response: Pain is decreased hs1 12:57 Drug: Tamsulosin 0.4 mg [tamsulosin 0.4 mg capsule (1 caps)] Route: PO; dsf 12:57 Drug: Ondansetron ODT 4 mg [ondansetron 4 mg disintegrating tablet (1 tabs)] Route: PO; dsf 12:57 Drug: HYDROcodone-acetaminophen 1 tabs [hydrocodone 5 mg-acetaminophen 325 mg tablet (1 dsf tabs)] Route: PO; Signatures: Dispatcher [employer] Sandra Velazquez RN RN kcs Jessika Alicia, Reg Reg gb Brigette Montanez, PA-C PA-C ef1 Lanny Lopez RN RN dsf Rolf Varma mm15 Christina Cabrales RN RN mk4 Francia Lobato RN hs1 The chart was reviewed and I authenticate all verbal orders and agree with the evaluation and treatment provided.Attachments: 10:46 [facility] [place] Payment Agreement mm15 09/25 11:20 T-Sheet-- Draft Copy Chart Complete MTDD
== END 2016-09-24 12:59 | disposition home or self-care (01) ==
LOC: M ED 09:28
DX: R10.84 Generalized abdominal pain (principal); R11.0 Nausea; K92.1 Melena; N20.1 Calculus of ureter; K21.9 Gastro-esophageal reflux disease without esophagitis; Z79.899 Other long term (current) drug therapy; Z88.1 Allergy status to other antibiotic agents
CPT/HCPCS: 36415; 74176; 76705; 80048; 80076; 81001; 82150; 83690; 85025; 87086; 96361; 96374; 96375; 99284; J1885; J2405

== ENCOUNTER 2018-01-30 06:32 | Emergency (ER) | payer OTHER ==
[2018-01-30] MEDS: NS 1,000 ML IV (07:20)
[2018-01-30] MEDS: KETOROLAC 30 MG/ML VIAL (J1885) IV (07:20)
[2018-01-30] MEDS ORDERED: ONDANSETRON 4MG/2ML VIAL (J2405) As Ordered (07:21)
[2018-01-30] MEDS: ONDANSETRON 4MG/2ML VIAL (J2405) IV (07:30)
[2018-01-30 07:36] LABS: BASO % 0.8 % (0.0-1.0); EOS # 0.1 10^3/uL (0.0-0.50); EOS % 2.2 % (0.0-3.0); HEMATOCRIT 45.8 % (42.0-52.0); HEMOGLOBIN 16.6 g/dl (13.5-17.5); IMMATURE GRANULOCYTE % 0.2 % (0-3.0); LYMPH # 1.9 10^3/uL (1.5-6.5); LYMPH % 37.5 % (24.0-44.0); MEAN CORPUSCULAR HEMOGLOBIN 29.8 pg (27.0-33.0); MEAN CORPUSCULAR HGB CONC 36.2 g/dl (32.0-36.5); MEAN CORPUSCULAR VOLUME 82.2 fl (80.0-96.0); MONO # 0.4 10^3/uL (0.0-0.8); MONO % 8.6 % (0.0-5.0); NEUTROPHILS # 2.6 10^3/uL (1.8-7.7); NEUTROPHILS % 50.7 % (36.0-66.0); PLATELET COUNT, AUTOMATED 151 10^3/uL (150-450); RED BLOOD COUNT 5.57 10^6/uL (4.30-6.10); WHITE BLOOD COUNT 5.1 10^3/uL (4.0-10.0)
[2018-01-30 07:57] LABS: ALBUMIN 4.3 GM/DL (3.2-5.2); ALBUMIN/GLOBULIN RATIO 1.59 (1.00-1.93); ALKALINE PHOSPHATASE 63 U/L (45-117); ALT/SGPT 19 U/L (12-78); ANION GAP 7 MEQ/L (8-16); AST/SGOT 11 U/L (7-37); BILIRUBIN,DIRECT 0.4 MG/DL (0.0-0.2); BILIRUBIN,TOTAL 2.5 MG/DL (0.2-1.0); BLOOD UREA NITROGEN 17 MG/DL (7-18); CALCIUM LEVEL 8.6 MG/DL (8.5-10.1); CARBON DIOXIDE LEVEL 28 MEQ/L (21-32); CHLORIDE LEVEL 109 MEQ/L (98-107); CREATININE FOR GFR 1.16 MG/DL (0.70-1.30); GLOMERULAR FILTRATION RATE > 60.0 (>60); GLUCOSE, FASTING 95 MG/DL (70-100); LIPASE 137 U/L (73-393); POTASSIUM SERUM 3.6 MEQ/L (3.5-5.1); SODIUM LEVEL 144 MEQ/L (136-145)
[2018-01-30 08:40] LABS: KETONE, URINE AUTO RFX NEGATIVE (NEGATIVE); LEUKOCYTE ESTERASE UR AUTO RFX NEGATIVE (NEGATIVE); MUCUS, URINE RFX SMALL (NEGATIVE); NITRITE, URINE AUTO RFX NEGATIVE (NEGATIVE); RBC, URINE AUTO RFX 0 /HPF (0-3); SPECIFIC GRAVITY UR AUTO RFX 1.019 (1.002-1.035); SQUAM EPITHELIAL CELL UR AURFX 0 /HPF (0-6); WBC, URINE AUTO RFX 1 /HPF (0-3)
[2018-01-30 10:09] LABS: CHLAMYDIA DNA AMPLIFICATION NEGATIVE (NEGATIVE); GC DNA AMPLIFICATION NEGATIVE (NEGATIVE)
== END 2018-01-30 09:28 | disposition home or self-care (01) ==
LOC: M ED 06:32
DX: R10.11 Right upper quadrant pain (principal); R11.0 Nausea; R10.12 Left upper quadrant pain; M54.6 Pain in thoracic spine; R30.0 Dysuria; Z87.442 Personal history of urinary calculi; Z88.0 Allergy status to penicillin
CPT/HCPCS: J2405

== ENCOUNTER → 2018-03-06 | Outpatient (CLI) | payer OTHER ==
[~2018-03-06] MED LIST: GASTROGRAFIN SOLUTION 30ML (Q9963) As Ordered; ISOVUE-370 76% 100ML VIAL (Q9967) As Ordered
== END ==
LOC: M RAD 12:28
DX: R10.13 Epigastric pain (principal)
CPT/HCPCS: Q9963